=== PATIENT | female | born 1955 | race Caucasian/White ===

== ENCOUNTER 2024-12-14 07:33 | Day surgery (SDC) | payer OTHER ==
[2024-11-27 10:40] VITALS: BMI 30.1
[2024-12-14 11:46] VITALS: TEMP 97.6
[2024-12-14 12:23] VITALS: BP 106/93; PULSE 71; RESP 15
== END 2024-12-14 12:25 | disposition home or self-care (01) ==
LOC: JASU-ENDO 07:33
PROVIDERS: ATTEND Internal Medicine Gastroenterology
PROC: 0DB98ZX Excision of Duodenum, Via Natural or Artificial Opening Endoscopic, Diagnostic (ICD-10-PCS; 2024-12-14)
PROC: 0DB78ZX Excision of Stomach, Pylorus, Via Natural or Artificial Opening Endoscopic, Diagnostic (ICD-10-PCS; 2024-12-14)
PROC: 0DB68ZX Excision of Stomach, Via Natural or Artificial Opening Endoscopic, Diagnostic (ICD-10-PCS; 2024-12-14)
PROC: 0DB48ZX Excision of Esophagogastric Junction, Via Natural or Artificial Opening Endoscopic, Diagnostic (ICD-10-PCS; 2024-12-14)
PROC: 0DBL8ZX Excision of Transverse Colon, Via Natural or Artificial Opening Endoscopic, Diagnostic (ICD-10-PCS; principal; 2024-12-14 11:00)
DX: Z12.11 Encounter for screening for malignant neoplasm of colon (principal); D12.3 Benign neoplasm of transverse colon; K31.A11 Gastric intestinal metaplasia without dysplasia, involving the antrum; K31.A12 Gastric intestinal metaplasia without dysplasia, involving the body (corpus); B96.81 Helicobacter pylori [H. pylori] as the cause of diseases classified elsewhere; K21.00 Gastro-esophageal reflux disease with esophagitis, without bleeding; K44.9 Diaphragmatic hernia without obstruction or gangrene
CPT/HCPCS: 88305-TC; 88312-TC; 88342-TC